=== PATIENT | female | born 1940 | race Caucasian/White ===

== ENCOUNTER 2021-02-09 15:41 | Observation (INO) | payer MEDICARE, SELFPAY ==
[2021-02-09] VITALS (10 sets, daily range): BP systolic 135–185; BP diastolic 74–114; PULSE 82–89; RESP 17–26; TEMP 36.4–37.6; O2SAT 94–99; BMI 17.0
--- NOTE | 2021-02-09 15:51 | XRR_ITS ---
PROCEDURE INFORMATION: Exam: XR Chest Exam date and time: 02/09/2021 3:35 PM Age: 80 years old Clinical indication: Dyspnea TECHNIQUE: Imaging protocol: XR of the chest. Views: 1 view. COMPARISON: CT chest con [id number] 07/16/2019 1:49 PM FINDINGS: Lungs: Severe emphysematous lung changes. Diffuse hyperinflation of lungs. Coarsened reticular interstitial lung changes. Prominent interstitial opacities in the lower lung tse bilaterally. Pleural spaces: Unremarkable. No pleural effusion. No pneumothorax. Heart/Mediastinum: Unremarkable. No cardiomegaly. Bones/joints: Bones are demineralized. Advanced arthritis changes in the shoulders. XR/XR chest 1V portable [id number] IMPRESSION: 1. Severe emphysema. 2. Lower lung interstitial opacities may correlate with areas of volume loss and bronchiectasis in the lingula and the right middle lobe on the comparison CT chest. Given that finding there is no convincing evidence of acute focal pulmonary disease, however difficult to exclude in the lower lung zones.
--- NOTE | 2021-02-09 15:54 | ECG_ITS ---
[facility] Test Date: 2021-02-09 Pat Name: Isabella He Department: Room: Gender: Female Piping Designer: : 1940 Requested By: Aki Bryant Order Number: [id number] Aimee MD: Yvon Amador M.D. Measurements Intervals [place] Rate: 85 P: 78 CO: 189 QRS: 60 QRSD: 80 T: 122 QT: 344 QTc: 411 Interpretive Statements SINUS RHYTHM LEFT ATRIAL ENLARGEMENT [-0.15mV P WAVE IN V1/V2] ANTEROSEPTAL MYOCARDIAL INFARCTION , POSSIBLY ACUTE [40+ ms Q WAVE IN V1-V4] Diffuse nonspecific ST-T changes ACUTE NM No previous ECG available for comparison Electronically Signed On 02-09-2021 20:49:28 CDT by Yvon Amador M.D. [email or web address]/[id number] f
[2021-02-09 16:21] LABS: Basophils % 0.7 %; Eosinophils # 0.1 10^3/uL (0.0-0.8); Eosinophils % 0.8 %; Hemoglobin 13.1 g/dL (11.5-15.3); Lymphocytes # 0.8 10^3/uL (0.8-4.8); Lymphocytes % 12.6 %; Mean Corpuscular HGB Conc 32.8 g/dL (30.0-36.0); Mean Corpuscular Volume 91.5 fL (81-99); Mean Platelet Volume 9.5 fL (7.4-10.4); Monocytes # 0.7 10^3/uL (0.2-0.9); Monocytes % 11.8 %; Neutrophils # 4.49 10^3/uL (1.8-7.7); Neutrophils % 73.8 %; Nucleated Red Blood Cells % 0 %; Platelet Count 271 10^3/cmm (130-400); Red Blood Count 4.37 10^6/uL (4.1-5.3); Red Cell Distribution Width 13.1 % (12.1-15.1); White Blood Count 6.1 10^3/uL (4.0-10.0)
[2021-02-09] MEDS: aspirin 81 mg Chew Tablet 324 MG PO (16:28)
[2021-02-09 16:42] LABS: SARS Covid-2 Antigen Negative (Negative)
[2021-02-09 16:52] LABS: Lactic Sepsis W/Reflex 0.8 mmol/L (0.5-2.2)
[2021-02-09 16:53] LABS: D Dimer 1.38 ug/mIFEU (0-0.59)
[2021-02-09 16:54] LABS: Troponin(5th) Baseline 54 ng/L (0-10)
[2021-02-09 17:01] LABS: Influenza A by IFA Negative (Negative); Influenza B by IFA Negative (Negative)
[2021-02-09] MEDS: albuterol 8 gm MDI 2 PUFF INHALATION (17:01)
[2021-02-09 17:02] LABS: Alanine Aminotransferase 15 U/L (0-33); Albumin Level 3.6 g/dL (3.5-5.2); Alkaline Phosphatase 72 IU/L (35-105); Aspartate Amino Transferase 14 U/L (0-32); Blood Urea Nitrogen 11 mg/dL (8-23); Calcium 8.8 mg/dL (8.5-10.5); Carbon Dioxide 28 mmol/L (22-29); Chloride 97 mmol/L (98-107); Globulin 2.9 g/dL (1.3-4.6); Glucose 110 mg/dL (65-115); NT Pro B Type Natriuretic Pept 1263 pg/mL (0-450); Osmolality Calculated 278 mOsm/kg (285-295); Sodium 134 mmol/L (136-145); Total Bilirubin 0.3 mg/dL (0.15-1.2); Total Protein 6.5 g/dL (6.6-8.7)
[2021-02-09 17:03] LABS: Anion Gap 13.5 (5-19); Potassium 4.5 mmol/L (3.5-5.1)
--- NOTE | 2021-02-09 17:04 | CTR_ITS ---
PROCEDURE INFORMATION: Exam: CTA Chest With Contrast Exam date and time: 02/09/2021 5:51 PM Age: 80 years old Clinical indication: Cough and shortness of breath; Patient HX: SOB x days, heart squirrelly x today; Additional info: Dyspnea/cp. R/O pe. Pneumonia? TECHNIQUE: Imaging protocol: Computed tomographic angiography of the chest with contrast. 3D rendering (Not supervised by radiologist): MIP and/or 3D reconstructed images were created by the technologist. Radiation optimization: All CT scans at this facility use at least one of these dose optimization techniques: automated exposure control; mA and/or kV adjustment per patient size (includes targeted exams where dose is matched to clinical indication); or iterative reconstruction. Contrast material: OMNI 350; Contrast volume: 71 ml; Contrast route: INTRAVENOUS (IV); COMPARISON: CT chest wo con [id number] 07/16/2019 1:49 PM RADIATION DOSE METRICS: Total DLP (mGy-cm): 363.12 FINDINGS: Pulmonary arteries: Small nonocclusive central pulmonary emboli are identified in the segmental pulmonary artery branch to the lingula and also the medial segmental artery branch to the right middle lobe. The main pulmonary artery diameter is unremarkable. Aorta: Unremarkable. No aortic aneurysm. No aortic dissection. Veins: No contrast reflux into the IVC or hepatic veins. Lungs: There is chronic volume loss changes in the lingula and the right middle lobe with chronic bronchiectasis. Bronchial wall thickening changes in the lower lobes are increased from prior. Patchy ground-glass opacities in the lower lobes are increased from prior. Mosaic attenuation changes throughout both lungs increased from prior. Pleural spaces: Unremarkable. No pneumothorax. No pleural effusion. Heart: RV/LV ratio is unremarkable. No significant cardiac chamber dilation changes. Negative for pericardial effusion. Lymph nodes: Unremarkable. No enlarged lymph nodes. Bones/joints: Exaggerated kyphosis of the upper thoracic spine is increased from prior imaging. No acute thoracic fractures are identified. Bones are chronically demineralized. Rightward convex scoliosis of the midthoracic spine is stable from prior. Soft tissues: Unremarkable. CT/CT angio chest PE protcl [id number] IMPRESSION: 1. Positive for small volume pulmonary embolism. Segmental level pulmonary artery thrombus is identified in the right middle lobe and the lingula. 2. There is no convincing CT angiogram evidence of acute significant right heart strain changes although clinical correlation is necessary. 3. Patchy airspace opacities and mosaic attenuation changes of the lungs with associated bronchial wall thickening features have developed since prior imaging. This may represent multifocal pneumonia or other pneumonitis changes. Bronchitis features are noted. 4. Chronic volume loss in the lingula and the right middle lobe with bronchiectasis changes. Radiation Dose CTDIVOL = (mGy): DLP = 363.12 (mGy-cm)
[2021-02-09 17:34] LABS: Add Urine Microscopic? NO; Charge for UA Resulting for Rev
--- NOTE | 2021-02-09 17:39 | PC.PHAR ---
PT STATED TO ME THAT SHE ALLERGIC TO SEVERAL MEDICATIONS, BUT SHE CANNOT REMEMBER THEM. I CALLED THE PT'S TO SEE IF HE KNEW. I SPOKE WITH THE PT'S SISTER WHO STATED THAT THE PT'S DAUGHTER IN LAW HAD THE LIST. THE DAUGHTER IN LAW IS NOT ON THE PAPERWORK SO I CANNOT TALK TO HER.
[2021-02-09 17:45] LABS: Bilirubin Urine Neg (Negative); Blood Urine Neg (Negative); Glucose Urine UA Norm (Normal); Ketones Urine Negative (Negative); Leukocyte Esterase Urine Negative (Negative); Nitrate Urine Negative (Negative); Protein Urine Neg (Negative); Urine Appearance Clear (CLEAR); Urine Color Yellow (Yellow); Urobilinogen Urine Norm (Negative); pH Urine 7 (5-7)
--- NOTE | 2021-02-09 17:54 | ECG_ITS ---
[facility] Test Date: 2021-02-09 Pat Name: Isabella He Department: Room: Gender: Female Trim Machine Adjuster: : 1940 Requested By: Aki Bryant Order Number: [id number] Aimee MD: Yvon Amador M.D. Measurements Intervals [place] Rate: 82 P: 86 VA: 185 QRS: 54 QRSD: 86 T: 119 QT: 355 QTc: 415 Interpretive Statements SINUS RHYTHM LEFT ATRIAL ENLARGEMENT [-0.15mV P WAVE IN V1/V2] ANTEROSEPTAL MYOCARDIAL INFARCTION , POSSIBLY ACUTE [40+ ms Q WAVE IN V1-V4] ACUTE DC No previous ECG available for comparison Electronically Signed On 02-09-2021 20:53:28 CDT by Yvon Amador M.D. [email or web address] [email or web address].[email or web address]/store/[id number]
[2021-02-09] MEDS: iohexol 350 mg/mL 100 mL Btl IV (18:55)
[2021-02-09 19:16] LABS: Troponin 5 2HR 63.95 ng/L (0-10); Troponin 5 2HR Delta 9.95 ABS# (0-10)
--- NOTE | 2021-02-09 19:39 | PM.HP ---
Providers/Chief Complaint Primary Care Provider: Juve Nair DO Chief Complaint: SHORTNESS OF BREATH History of Present Illness Isabella He is a 80 year old female who does not have significant past medical history other than hypertension, presented today after she was evaluated at the clinic for palpitations. Patient is stating that for last 1 to 2 weeks she has not been feeling well, she would experience palpitations without any triggering factor, she has not noticed any chest pain however has been dealing with some shortness of breath and was treated with amoxicillin for bronchitis, she attributed her symptoms to adverse reaction to amoxicillin however she did not notice any skin rash, lip swelling or wheezing. Today she went to her PCP again who recommended her to go to the ER because of sinus tachycardia and hypertension. Qnkocidw-nd-jil is also in the room who is endorsing that for last few weeks she has not been able to do much, stays in her couch and rest most of the time, probably worn out from the care that she was providing to her who who has been placed in a prison. No recent long drives or air travel. Patient is denying previous history of cancer. She has never undergone mammograms or screening colonoscopies. Recently she was diagnosed with hypertension for which she was started on lisinopril otherwise she does not take any other medications. Diagnostics in the ER revealed hypotension, sinus tachycardia, high D-dimer, CTA ruled in for PE concerning pulmonary parenchymal changes from pneumonia, she was given Levaquin and therapeutic dose of Lovenox in the ER. At the time of my evaluation she was saturating well on 2 L nasal cannula no active chest pain however did endorse pleuritic chest pain to the ER physician. EKG does show signs of right heart strain in lead V1 V2 with T wave inversion in lateral limb and chest leads. First troponin 54-second troponin 63, BNP 1200 however clinically does not look fluid overloaded. Review of Systems Const: Reports: chills, body aches, change in appetite, change in weight and fatigue; Denies: fever(s) Eyes: Denies: change in vision ENMT: Denies: throat pain Card: Reports: chest pain, palpitations and dyspnea on exertion; Denies: irregular heart rhythm Resp: Reports: dyspnea and pain on inspiration GI: Denies: abdominal pain : Denies: flank pain Musc: Denies: neck pain Skin/Breast: Denies: rash Neuro: Denies: headache(s) Psych: Denies: anxiety Endo: Denies: polyuria Kendrick/Lymph: Denies: easy bruising All/Imm: Denies: urticaria Medications/Allergies Home Medications Medication Instructions Recorded Confirmed Last Taken Type amoxicillin-pot clavulanate 1 tab PO Q8H 02/09/21 02/09/21 02/08/21 History PFSH Acute PFSH: Medical History HTN (hypertension) Surgical History History of appendectomy Hx of cholecystectomy Family History Denies family history of Diabetes CAD (coronary artery disease) Social History Smoking and tobacco status: never smoked Alcohol intake: never Substance/Drug Use: never Household members: spouse Housing: House Vitals/I&O/Wt Last Vital Signs Temp 99.6 F 02/09/21 15:42 Pulse 86 02/09/21 18:00 Resp 22 H 02/09/21 18:00 BP 172/84 02/09/21 18:00 Pulse Ox 94 02/09/21 18:00 Weight last 48 hrs Weight 46.539 kg Physical Exam Narrative: EXAM NARRATIVE: elderly female currently saturating well on 2 L nasal cannula no active chest pain shortness of breath or abdominal pain [id number]-se-val is present at the bedside S1, S2 no systolic murmur, no active signs of heart failure Abdomen soft nontender Bilateral breath diminished breath sounds with rhonchi at the bases no active wheezing or stridor Appropriate mood and affect Cognitive impairment No neurological deficits Lower extremity no edema gangrene ulcer Appropriate mood and affect Data : 02/09/21 16:08 02/09/21 16:08 Micro: Microbiology 02/09/21 16:37 Blood Culture - Preliminary Blood SPECIMEN COLLECTED A&P Assessment and plan (1) Pulmonary embolism: Status: Acute (2) Acute respiratory failure with hypoxia: Status: Acute (3) CAP (community acquired pneumonia): Status: Acute Additional A&P Information Pleuritic chest pain and hypoxia secondary to acute pulmonary embolism High troponin with BNP [address] changes in V1 V2 concerning for right heart strain, will request echo in the morning, follow-up with 6-hour troponin currently patient is chest pain-free She is hypertensive, saturating well on 2 L nasal cannula This seems to be a provoked event, as per the [id number] she has been leading a sedentary lifestyle for last 2 weeks, before that she was very active and was taking care of her No previous history of cancer she never had undergone screening mammograms or colonoscopies Patient is endorsing a fall 2 weeks ago which she is attributing to not feeling well no syncopal events For now I would continue Lovenox therapeutic dose, I do believe her fall is secondary to current PE, kindly reevaluate anticoagulation options before discharge, Home O2 evaluation I would not initiate ACS protocol for now continue therapeutic dose of Lovenox, follow-up with echo Community-acquired pneumonia Failed outpatient bronchitis treatment Continue ceftriaxone and azithromycin for now requested urine antigen, home O2 evaluation, DuoNeb every 4h as needed Pneumonia severity index low Sepsis not present on admission Essential hypertension: I would continue lisinopril 10 mg daily, if her blood pressure consistently stays above 140 will add amlodipine Full code Cardiac diet DVT prophylaxis not indicated due to therapeutic use of Lovenox Attestations Medical Necessity Statement*: Anticipating discharge in less than 48 hours will need echo to rule out right heart strain currently being treated for acute PE and community-acquired pneumonia Time Spent in Patient Care: (>than 50% of time spent in counselling and/or direct pt care on unit). 40mins Coding Level of Care Code Acute Ethylbenzene Cracking Supervisor for Angelina Delarosa Diagnoses Pulmonary embolism I26.99 Acute respiratory failure with hypoxia J96.01 CAP (community acquired pneumonia) J18.9
[2021-02-09] MEDS: levofloxacin-dextrose 5 % 750 MG/150 ML PREMIX 100 MG IV (19:59)
--- NOTE | 2021-02-09 20:03 | ED_ITS ---
HPI - SOB/Dyspnea General: Chief Complaint: Shortness of Breath/Dyspnea Stated Complaint: SHORTNESS OF BREATH Time Seen by Provider: 02/09/21 15:41 History of Present Illness: HPI Narrative: The patient is an 80-year-old female with past medical history hypertension who comes to the ER complaining of increasing shortness of breath. She was sent from her clinic where they said she was too short of breath and recommended she go to the ER. She has been being treated with amoxicillin for bronchitis for the past week but says it is not helping. Her family member reminded her also that she is allergic to amoxicillin and is not supposed to be taking it. She says it hurts her neck a little bit whenever she takes the amoxicillin but otherwise has been okay. She is complaining of a productive cough and shortness of breath as well as chest pain when she coughs. No previous history of [place]. MD elicited complaint: shortness of breath and cough Associated symptoms: Deny abdominal pain, chest pain, dizziness, extremity pain, orthopnea, palpitations or polyuria Review of Systems General: Reports: 10 or more systems reviewed and unremarkable except in HPI and below Const: Denies: fatigue Eyes: Denies: change in vision, blurry vision or eye redness ENMT: Denies: throat pain, swelling of lips/tongue, ear or mastoid pain or nasal congestion Card: Denies: chest pain, palpitations, irregular heart rhythm, edema, dyspnea on exertion or orthopnea Resp: Reports: dyspnea and productive cough GI: Denies: abdominal pain, diarrhea or GI cramping : Denies: flank pain, difficulty voiding, urinary frequency or urinary urgency Musc: Denies: neck pain, back pain, extremity pain, joint pain, joint redness, limited range of motion or muscle weakness Skin/Breast: Denies: rash, pruritus, erythema, skin pain or skin tenderness Neuro: Denies: headache(s), numbness in extremities, weakness in extremities, sensory changes, difficulty walking, dizziness, confusion or Slurred speech present Psych: Denies: anxiety or depression Endo: Denies: polyuria All/Imm: Denies: urticaria, throat swelling or tongue swelling PFSH ED PFSH: Medical History HTN (hypertension) Surgical History History of appendectomy Hx of cholecystectomy Family History Denies family history of Diabetes CAD (coronary artery disease) Social History Smoking and tobacco status: never smoked Alcohol intake: never Substance/Drug Use: never Household members: spouse Housing: House Physical Exam Const: COMMON NORMALS: no acute distress, average body habitus, patient oriented x3, no limitations, healthy appearing, alert and well nourished GEN ERAL APPEARANCE: cooperative, comfortable, well kempt and well developed ORIENTATION/CONSCIOUSNESS: Yes awake, Yes oriented to person, Yes oriented to place and Yes oriented to time HENMT: COMMON NORMALS: normocephalic, external ears normal and Normal external nose present HEAD & SCALP: normal to inspection and normocephalic NOSE: Normal external nose present EXTERNAL EAR: Yes external ears normal MOUTH: Normal oral and palatal mucosa present THROAT: posterior oropharynx normal Eye: COMMON NORMALS: Equal, round and reactive pupils present and EOMs intact bilaterally GENERAL EYE: appearance normal, both eyes and all related structures PUPIL: Yes Equal, round and reactive pupils present Neck/C-Spine: COMMON NORMALS: full ROM, no lymphadenopathy, no meningeal signs and no JVD GENERAL: Yes normal visual inspection Lymph: LYMPHATIC: no lymphadenopathy noted Chest: COMMONS NORMALS: normal inspection of the chest and normal palpation of entire chest wall Resp: COMMON NORMALS: normal respiratory effort, No retractions and No use of accessory muscles EFFORT & INSPECTION: Yes able to speak in complete sentences, Yes tachypneic and Yes Actively coughing AUSCULTATION: rhonchi and wheezes Cardio: COMMON NORMALS: no JVD, regular rate, regular rhythm, S1 normal heart sound present, S2 normal heart sound present and Peripheral pulses 2+ throughout RATE: regular rate RHYTHM: regular rhythm HEART SOUNDS: S1 normal heart sound present and S2 normal heart sound present PERIPHERAL PULSES: Peripheral pulses 2+ throughout GI: COMMON NORMALS: Normal to inspection, nondistended, normoactive bowel sounds present, Soft to palpation, non-tender and no masses INSPECTION: Yes normal to inspection PALPATION: Yes Soft to palpation : COMMON NORMALS: Yes no CVA tenderness BLADDER/KIDNEY EXAM: Yes no CVA tenderness Back/Pelvis: COMMON NORMALS: no CVA tenderness, thoracic and lumbar spine normal to inspection, no thoracic nor lumbar tenderness and thoraco-lumbar ROM normal Extremity: COMMON NORMALS: normal to inspection, full ROM, capillary refill normal, no joint enlargement and no pedal edema GENERAL: Yes normal exam except as noted Neuro: COMMON NORMALS: patient oriented x3, CN's II-XII intact bilaterally, moves all extremities, no focal motor deficits, no sensory deficits noted and gait normal SENSORIUM/ORIENTATION: Yes alert, Yes oriented to person, Yes o riented to place and Yes oriented to time MENINGEAL SIGNS: Yes no meningeal signs Psych: COMMON NORMALS: mental status grossly normal, Normal thought process present, cooperative, normal affect and speech normal APPEARANCE: Yes well kempt ATTITUDE: Yes calm SPEECH: Yes normal speech THOUGHT PROCESS: Normal thought process present Skin: COMMON NORMALS: no rashes or lesions noted GENERAL SKIN EXAM: no rashes or lesions noted Course Vital Signs: Vital signs: Vital Signs Temperature 97.6 F 02/09/21 23:08 Pulse Rate 85 02/09/21 23:08 Respiratory Rate 17 02/09/21 23:08 Blood Pressure 135/74 02/09/21 23:08 Pulse Oximetry 96 02/09/21 23:08 MDM - SOB/Dyspnea MDM Narrative: Medical decision making narrative: The patient came to the ER from clinic and has been coughing for a week and failed amoxicillin. Family member also notes that she says she has had a history of allergy to amoxicillin in the past. Her D-dimer was elevated and CT angiogram showed small pulmonary embolism. No right heart strain. She was started on Lovenox. I discussed the risks, benefits, and alternatives of going on blood thinners and she understands and accepts the risks. Also started on IV levofloxacin as she likely has a pneumonia. The patient is requiring oxygen. Discussed with Dr. Chi who accepts for admission. Lab Data: Labs: Lab Results 02/09/21 02/09/21 02/09/21 Range/Units 16:08 16:08 16:08 WBC 6.1 (4.0-10.0) 10^3/ uL RBC 4.37 (4.1-5.3) 10^6/u L Hgb 13.1 (11.5-15.3) g/dL Hct 40.0 (37.0-47.0) % MCV 91.5 (81-99) fL MCH 30.0 (28.0-34.0) pg MCHC 32.8 (30.0-36.0) g/dL RDW 13.1 (12.1-15.1) % Plt Count 271 (130-400) 10^3/c mm MPV 9.5 (7.4-10.4) fL Neut % (Auto) 73.8 % Lymph % (Auto) 12.6 % [place] % (Auto) 11.8 % Eos % (Auto) 0.8 % Baso % (Auto) 0.7 % Neut # (Auto) 4.49 (1.8-7.7) 10^3/u L Lymph # (Auto) 0.8 (0.8-4.8) 10^3/u L [place] # (Auto) 0.7 (0.2-0.9) 10^3/u L Eos # (Auto) 0.1 (0.0-0.8) 10^3/u L Baso # (Auto) 0.0 (0.0-0.1) 10^3/u L Nucleated RBC % (a uto) 0 % Nucleated RBCs # 0.0 /100WBC D-Dimer 1.38 H (0-0.59) ug/mIFE U Sodium (136-145) mmol/L Potassium (3.5-5.1) mmol/L Chloride (98-107) mmol/L Carbon Dioxide (22-29) mmol/L Anion Gap (5-19) BUN (8-23) mg/dL Creatinine (0.5-0.9) mg/dL GFR Calculation Glucose (65-115) mg/dL Calculated Osmolal ity (285-295) mOsm/k g Lactic Acid 0.8 (0.5-2.2) mmol/L Calcium (8.5-10.5) mg/dL Total Bilirubin (0.15-1.2) mg/dL AST (0-32) U/L ALT (0-33) U/L Alkaline Phosphata se (35-105) IU/L Troponin T Baselin e (0-10) ng/L Troponin T 120 Min [place] (0-10) ng/L Delta Troponin T (0-10) ABS# NT-Pro-B Natriuret Pep (0-450) pg/mL Total Protein (6.6-8.7) g/dL Albumin (3.5-5.2) g/dL Globulin (1.3-4.6) g/dL Urine Color (Yellow) Urine Appearance (CLEAR) Urine pH (5-7) Ur Specific Gravit y (1.005-1.030) Urine Protein (Negative) Urine Glucose (UA) (Normal) Urine Ketones (Negative) Urine Blood (Negative) Urine Nitrate (Negative) Urine Bilirubin (Negative) Urine Urobilinogen (Negative) mg/dL Ur Leukocyte Nidia ase (Negative) Influenza Type A A g (Negative) Influenza Type B A g (Negative) SARS-CoV-2 Ag (Rap id) (Negative) 02/09/21 02/09/21 02/09/21 Range/Units 16:08 16:08 16:12 WBC (4.0-10.0) 10^3/ uL RBC (4.1-5.3) 10^6/u L Hgb (11.5-15.3) g/dL Hct (37.0-47.0) % MCV (81-99) fL MCH (28.0-34.0) pg MCHC (30.0-36.0) g/dL RDW (12.1-15.1) % Plt Count (130-400) 10^3/c mm MPV (7.4-10.4) fL Neut % (Auto) % Lymph % (Auto) % [place] % (Auto) % Eos % (Auto) % Baso % (Auto) % Neut # (Auto) (1.8-7.7) 10^3/u L Lymph # (Auto) (0.8-4.8) 10^3/u L [place] # (Auto) (0.2-0.9) 10^3/u L Eos # (Auto) (0.0-0.8) 10^3/u L Baso # (Auto) (0.0-0.1) 10^3/u L Nucleated RBC % (a uto) % Nucleated RBCs # /100WBC D-Dimer (0-0.59) ug/mIFE U Sodium 134 L (136-145) mmol/L Potassium 4.5 (3.5-5.1) mmol/L Chloride 97 L (98-107) mmol/L Carbon Dioxide 28 (22-29) mmol/L Anion Gap 13.5 (5-19) BUN 11 (8-23) mg/dL Creatinine 0.3 L (0.5-0.9) mg/dL GFR Calculation Not Reportable Glucose 110 (65-115) mg/dL Calculated Osmolal ity 278 L (285-295) mOsm/k g Lactic Acid (0.5-2.2) mmol/L Calcium 8.8 (8.5-10.5) mg/dL Total Bilirubin 0.3 (0.15-1.2) mg/dL AST 14 (0-32) U/L ALT 15 (0-33) U/L Alkaline Phosphata se 72 (35-105) IU/L Troponin T Baselin e 54 H (0-10) ng/L Troponin T 120 Min [place] (0-10) ng/L Delta Troponin T (0-10) ABS# NT-Pro-B Natriuret Pep 1263 H (0-450) pg/mL Total Protein 6.5 L (6.6-8.7) g/dL Albumin 3.6 (3.5-5.2) g/dL Globulin 2.9 (1.3-4.6) g/dL Urine Color (Yellow) Urine Appearance (CLEAR) Urine pH (5-7) Ur Specific Gravit y (1.005-1.030) Urine Protein (Negative) Urine Glucose (UA) (Normal) Urine Ketones (Negative) Urine Blood (Negative) Urine Nitrate (Negative) Urine Bilirubin (Negative) Urine Urobilinogen (Negative) mg/dL Ur Leukocyte Nidia ase (Negative) Influenza Type A A g (Negative) Influenza Type B A g (Negative) SARS-CoV-2 Ag (Rap id) Negative (Negative) 02/09/21 02/09/21 02/09/21 Range/Units 16:30 17:27 18:08 WBC (4.0-10.0) 10^3/ uL RBC (4.1-5.3) 10^6/u L Hgb (11.5-15.3) g/dL Hct (37.0-47.0) % MCV (81-99) fL MCH (28.0-34.0) pg MCHC (30.0-36.0) g/dL RDW (12.1-15.1) % Plt Count (130-400) 10^3/c mm MPV (7.4-10.4) fL Neut % (Auto) % Lymph % (Auto) % [place] % (Auto) % Eos % (Auto) % Baso % (Auto) % Neut # (Auto) (1.8-7.7) 10^3/u L Lymph # (Auto) (0.8-4.8) 10^3/u L [place] # (Auto) (0.2-0.9) 10^3/u L Eos # (Auto) (0.0-0.8) 10^3/u L Baso # (Auto) (0.0-0.1) 10^3/u L Nucleated RBC % (a uto) % Nucleated RBCs # /100WBC D-Dimer (0-0.59) ug/mIFE U Sodium (136-145) mmol/L Potassium (3.5-5.1) mmol/L Chloride (98-107) mmol/L Carbon Dioxide (22-29) mmol/L Anion Gap (5-19) BUN (8-23) mg/dL Creatinine (0.5-0.9) mg/dL GFR Calculation Glucose (65-115) mg/dL Calculated Osmolal ity (285-295) mOsm/k g Lactic Acid (0.5-2.2) mmol/L Calcium (8.5-10.5) mg/dL Total Bilirubin (0.15-1.2) mg/dL AST (0-32) U/L ALT (0-33) U/L Alkaline Phosphata se (35-105) IU/L Troponin T Baselin e (0-10) ng/L Troponin T 120 Min [place] 63.95 H (0-10) ng/L Delta Troponin T 9.95 (0-10) ABS# NT-Pro-B Natriuret Pep (0-450) pg/mL Total Protein (6.6-8.7) g/dL Albumin (3.5-5.2) g/dL Globulin (1.3-4.6) g/dL Urine Color Yellow (Yellow) Urine Appearance Clear (CLEAR) Urine pH 7 (5-7) Ur Specific Gravit y 1.010 (1.005-1.030) Urine Protein Neg (Negative) Urine Glucose (UA) Norm (Normal) Urine Ketones Negative (Negative) Urine Blood Neg (Negative) Urine Nitrate Negative (Negative) Urine Bilirubin Neg (Negative) Urine Urobilinogen Norm (Negative) mg/dL Ur Leukocyte Nidia ase Negative (Negative) Influenza Type A A g Negative (Negative) Influenza Type B A g Negative (Negative) SARS-CoV-2 Ag (Rap id) (Negative) Discharge Plan Discharge Patient Disposition: Admitted As Inpatient Admit Provider: Katherine Chi Clinical Impression: Pulmonary embolism, CAP (community acquired pneumonia), Acute respiratory failure with hypoxia Condition: Stable Coding Level of Care Code ED Production Support Specialist for Angelina Delarosa
[2021-02-09] MEDS: enoxaparin 60 mg/0.6 mL Syringe 50 MG SUBCUT (20:25)
[2021-02-09] MEDS: lisinopril 20 mg Tablet PO (22:31)
[2021-02-09 22:51] LABS: Procalcitonin 0.04 ng/mL (0-0.5)
[2021-02-09 23:01] LABS: Anion Gap 12.1 (5-19); Blood Urea Nitrogen 9 mg/dL (8-23); Calcium 8.9 mg/dL (8.5-10.5); Carbon Dioxide 28 mmol/L (22-29); Chloride 97 mmol/L (98-107); Glucose 182 mg/dL (65-115); Osmolality Calculated 279 mOsm/kg (285-295); Potassium 4.1 mmol/L (3.5-5.1); Sodium 133 mmol/L (136-145)
[2021-02-10] VITALS (8 sets, daily range): BP systolic 120–162; BP diastolic 69–75; PULSE 74–89; RESP 17–18; TEMP 36.4–36.9; O2SAT 90–97
--- NOTE | 2021-02-10 05:00 | USCV_ITS ---
Isabella He Age: 80 Gender: F : 1940 Exam Date: 02/10/2021 06:18 Ordering Phys: Katherine Chi MD Technologist: Adry Nelson Exam Location: [facility] [place] Indication: Pulmonary embolism BP: 130 / 69 HR: 74 Rhythm: Sinus Technical Quality: Adequate MEASUREMENTS (Male / Female) Normal Values 2D ECHO LV Diastolic Diameter PLAX 3.7 cm 4.2 - 5.9 / 3.9 - 5.3 cm LV Systolic Diameter PLAX 2.7 cm IVS Diastolic Thickness 1.5 cm 0.6 - 1.0 / 0.6 - 0.9 cm IVS Systolic Thickness 1.3 cm LVPW Diastolic Thickness 1.1 cm 0.6 - 1.0 / 0.6 - 0.9 cm LVPW Systolic Thickness 1.6 cm LVOT Diameter 2.0 cm LV Ejection Fraction 2D Teich 52.3 % LV Ejection Fraction MOD 2C 57.9 % LV Ejection Fraction 2C AL 57.6 % LA Diameter 3.5 cm LA Width 4.5 cm LA Height 3.8 cm RA Width 2.5 cm RA Height 3.4 cm Aorta at Sinotubular Diameter 2.0 cm M-MODE LV Diastolic Diameter MM 4.7 cm 4.2 - 5.9 / 3.9 - 5.3 cm LV Systolic Diameter MM 3.2 cm LV Ejection Fraction MM Teich 59.7 % IVS Diastolic Thickness MM 1.0 cm 0.6 - 1.0 / 0.6 - 0.9 cm IVS Systolic Thickness MM 1.2 cm LVPW Diastolic Thickness MM 0.8 cm 0.6 - 1.0 / 0.6 - 0.9 cm LVPW Systolic Thickness MM 1.1 cm Aortic Annulus Diameter 2.1 cm LA Ao Ratio MM 1.8 MV E Point Septal Separation 0.2 cm DOPPLER AV Peak Velocity 168.0 cm/s LVOT Peak Velocity 80.0 cm/s AV Area Cont Eq vti 1.5 cm squared AV Area Cont Eq pk 1.5 cm squared MV Area PHT 4.1 cm squared Mitral E to A Ratio 2.2 MV E' Velocity 65.0 cm/s Mitral E to MV E' Ratio 16.5 Mitral E to LV E' Lateral Ratio 15.1 Mitral E to LV E' Septal Ratio 18.5 TR Peak Velocity 276.5 cm/s TR Peak Gradient 30.6 mmHg TV Peak E Velocity 79.0 cm/s Right Atrial Pressure 3.0 mmHg Pulmonary Artery Systolic Pressu 33.6 mmHg PV Peak Velocity 104.0 cm/s RV Acceleration Time 0.1 s RV Ejection Time 0.3 s RV AcT/ET 0.2 FINDINGS Left Ventricle Normal left ventricular cavity size. Mild increased left ventricular wall thickness. Normal left ventricular systolic function. Left ventricular ejection fraction is estimated at 60 %. Grade II diastolic dysfunction, moderately elevated filling pressures. Right Ventricle Normal right ventricular size and systolic function. Right ventricular systolic pressure 36 mmHg. Right Atrium Normal right atrial size. Right atrial pressure estimated at 3 mmHg. Interatrial septum deviated to right. Left Atrium Moderately increased left atrial size. Mitral Valve Mild mitral annular calcification. Moderately thickened mitral valve. No mitral valve stenosis. Moderate mitral valve regurgitation. Aortic Valve Mildly thickened trileaflet aortic valve. Aortic valve sclerosis without stenosis. Mild to moderate aortic valve regurgitation. Tricuspid Valve Structurally normal tricuspid valve. Trace to mild tricuspid valve regurgitation. Pulmonic Valve Structurally normal pulmonic valve. No pulmonary valve stenosis. Mild pulmonary valve regurgitation. Pericardium No pericardial effusion. Aorta Normal size aortic root and proximal ascending aorta. Normal- sized inferior vena cava. CONCLUSIONS 1. Normal left ventricular cavity size. Mild increased left ventricular wall thickness. Normal left ventricular systolic function. Left ventricular ejection fraction is estimated at 60 %. Grade II diastolic dysfunction, moderately elevated filling pressures. 2. Normal right ventricular size and systolic function. 3. Moderately increased left atrial size. 4. Moderate mitral valve regurgitation. 5. Mild to moderate aortic valve regurgitation. 6. Pulmonary artery pressure estimated at 36 mmHg. 7. No prior similar studies to compare. Monique Bhatt MD (Electronically Signed) Final Date: 10 Feb 2021 13:38 S
[2021-02-10] MEDS: enoxaparin 60 mg/0.6 mL Syringe 50 MG SUBCUT (06:07)
[2021-02-10 06:36] LABS: Basophils # 0.1 10^3/uL (0.0-0.1); Basophils % 1.3 %; Eosinophils # 0.1 10^3/uL (0.0-0.8); Hematocrit 37.9 % (37.0-47.0); Hemoglobin 12.4 g/dL (11.5-15.3); Lymphocytes % 24.3 %; Mean Corpuscular HGB Conc 32.7 g/dL (30.0-36.0); Mean Corpuscular Hemoglobin 29.9 pg (28.0-34.0); Mean Corpuscular Volume 91.3 fL (81-99); Mean Platelet Volume 9.7 fL (7.4-10.4); Monocytes # 0.6 10^3/uL (0.2-0.9); Monocytes % 15.8 %; Neutrophils # 2.19 10^3/uL (1.8-7.7); Neutrophils % 54.8 %; Nucleated Red Blood Cells % 0 %; Platelet Count 261 10^3/cmm (130-400); Red Blood Count 4.15 10^6/uL (4.1-5.3)
[2021-02-10] MEDS: cefTRIAXone 1,000 MG in sodium chloride 0.9% (plus) 50 ML 100 MG IV (08:53)
[2021-02-10] MEDS: lisinopril 20 mg Tablet PO (08:54)
[2021-02-10] MEDS: azithromycin 250 mg Tablet 500 MG PO (08:54)
--- NOTE | 2021-02-10 13:03 | CTR_ITS ---
PROCEDURE INFORMATION: Exam: CT Abdomen And Pelvis Without Contrast Exam date and time: 02/10/2021 2:54 PM Age: 80 years old Clinical indication: Screening exam; Other: Possible cancer; Prior surgery; Surgery type: Appy, bladder TECHNIQUE: Imaging protocol: Computed tomography of the abdomen and pelvis without contrast. Radiation optimization: All CT scans at this facility use at least one of these dose optimization techniques: automated exposure control; mA and/or kV adjustment per patient size (includes targeted exams where dose is matched to clinical indication); or iterative reconstruction. COMPARISON: CTA chest dated 02/09/2021 RADIATION DOSE METRICS: Total DLP (mGy-cm): 660.34 FINDINGS: Lungs: There is consolidation in the right middle and bilateral lower lobes of the lung. There is cardiomegaly. Liver: Normal. No mass. Gallbladder and bile ducts: Normal. No calcified stones. No ductal dilation. Pancreas: Normal. No ductal dilation. Spleen: Normal. No splenomegaly. Adrenal glands: Normal. No mass. Kidneys and ureters: Normal. No hydronephrosis. Stomach and bowel: Colonic diverticula are present although there are no CT findings to suggest diverticulitis. There is stool throughout the colon. No bowel obstruction or wall thickening. Appendix: There has been an appendectomy. Intraperitoneal space: Unremarkable. No free air. No significant fluid collection. Vasculature: Unremarkable. No abdominal aortic aneurysm. Lymph nodes: Unremarkable. No enlarged lymph nodes. Urinary bladder: There is hyperdensity in the bladder with a Hounsfield unit measurement of 66. This likely represents contrast from the patient's previous CTA chest. No calcification or gas. Reproductive: There is a 3.1 cm left ovarian cyst. Bones/joints: Unremarkable. No acute fracture. Soft tissues: Unremarkable. Other findings: This study is compromised by patient motion. CT/CT abdomen pelvis wo con [id number] IMPRESSION: There are no acute concerning abnormalities. There is bilateral lung consolidation which is unchanged when compared with 02/09/2021. Radiation Dose CTDIVOL = (mGy): DLP = 660.34 (mGy-cm)
--- NOTE | 2021-02-10 13:03 | PM.DCS ---
Discharge Providers Date of Admission: 02/09/21 19:48 Date of Discharge: February 10, 2021 Attending Provider at Admission: Katherine Chi MD Attending Provider at Discharge: Rehan Gamboa MD Primary Care Provider: Juve Nair DO Diagnoses at Discharge Discharge Diagnosis (1) Pulmonary embolism: Status: Acute (2) Acute respiratory failure with hypoxia: Status: Acute (3) CAP (community acquired pneumonia): Status: Acute (4) Palpitations: Status: Acute Reason for Visit Reason for Visit: SHORTNESS OF BREATH Hospital Course Hospital Course Isabella He is a 80 year old female who does not have significant past medical history other than hypertension, presented today after she was evaluated at the clinic for palpitations. Patient is stating that for last 1 to 2 weeks she has not been feeling well, she would experience palpitations without any triggering factor, she has not noticed any chest pain however has been dealing with some shortness of breath and was treated with amoxicillin for bronchitis, she attributed her symptoms to adverse reaction to amoxicillin however she did not notice any skin rash, lip swelling or wheezing. Today she went to her PCP again who recommended her to go to the ER because of sinus tachycardia and hypertension. [id number] is also in the room who is endorsing that for last few weeks she has not been able to do much, stays in her couch and rest most of the time, probably worn out from the care that she was providing to her who who has been placed in a mcc. No recent long drives or air travel. Patient is denying previous history of cancer. She has never undergone mammograms or screening colonoscopies. Recently she was diagnosed with hypertension for which she was started on lisinopril otherwise she does not take any other medications. Diagnostics in the ER revealed hypotension, sinus tachycardia, high D-dimer, CTA ruled in for PE concerning pulmonary parenchymal changes from pneumonia, she was given Levaquin and therapeutic dose of Lovenox in the ER. At the time of my evaluation she was saturating well on 2 L nasal cannula no active chest pain however did endorse pleuritic chest pain to the ER physician. EKG does show signs of right heart strain in lead V1 V2 with T wave inversion in lateral limb and chest leads. Patient admitted to the hospital under observation for new diagnosis of PE. She was started on full dose anticoagulation. Echocardiogram was done. Patient remained hemodynamically stable and on the day of discharge was on room air saturating 90%. Home O2 evaluation has been done prior to discharge. At baseline patient has not been getting much out of bed for last few weeks and she has been feeling weak though she has not had any fever, nausea, vomiting, diarrhea, dysuria. As per my conversation with the patient and patient's [id number] Ms. Yo patient has been having frequent falls at home as well. Patient does not carry a formal diagnosis of dementia but there is a concern that she is becoming more forgetful and difficult to take care of herself as per the family members because of which they are trying to get approved with the family. Because of concerns of frequent falls and possibility of hemorrhagic stroke because of a fall there is a discussion regarding need of anticoagulation or not. We discussed the potential benefits versus risk factor. Given the fact that patient does not have a hemodynamically significant pulmonary embolism and is on room air with recurrent falls patient is at a higher risk of hemorrhagic stroke because of which decision was made not to do any anticoagulation for now. Because of age and family history of ovarian cancer with a new diagnosis of incidental PE CT abdomen pelvis was done as well for cancer screening. Patient also states that she has been having occasional episodes of palpitations on and off for last 1 month for which event monitor has been provided to the patient for next 21 days. Patient is to follow-up with Dr. Bhatt in 6 weeks for discussing the results of event monitor. Both patient and patient's [id number] are in agreements to the treatment plan. Patient has been discharged hemodynamically stable condition advised to follow-up with a primary care provider within next 4 to 7 days. Physical Exam Narrative: EXAM NARRATIVE: elderly female S1, S2 no systolic murmur, no active signs of heart failure Abdomen soft nontender Bilateral breath diminished breath sounds with rhonchi at the bases no active wheezing or stridor Appropriate mood and affect Cognitive impairment No neurological deficits Lower extremity no edema gangrene ulcer Appropriate mood and affect Discharge Data Data Completed and Pending: Completed Studies During Hospitalization Category Date Time Status CT angio chest PE protcl [id number] Stat Cat Scan 02/09/21 17:04 Completed XR chest 1V vincenzo ble [id number] Urgent Exams 02/09/21 15:51 Completed Pending at discharge Category Date Time Status CT chest abd pel w con* Routine Cat Scan 02/10/21 12:13 Ordered Blood Culture Sta t Lab 02/09/21 16:37 Results CV echo complete* [id number] Routine Ultrasound 02/10/21 05:00 [place] [id number] Routin e Ultrasound 02/10/21 05:00 Ordered Labs from last 24 hours 02/10/21 02/09/21 02/09/21 05:33 20:20 20:20 WBC 4.0 RBC 4.15 Hgb 12.4 Hct 37.9 MCV 91.3 MCH 29.9 MCHC 32.7 RDW 13.0 Plt Count 261 MPV 9.7 Neut % (Auto) 54.8 Lymph % (Auto) 24.3 Franklin % (Auto) 15.8 Eos % (Auto) 3.0 Baso % (Auto) 1.3 Neut # (Auto) 2.19 Lymph # (Auto) 1.0 Franklin # (Auto) 0.6 Eos # (Auto) 0.1 Baso # (Auto) 0.1 Nucleated RBC % (a uto) 0 Nucleated RBCs # 0.0 D-Dimer Sodium 133 L Potassium 4.1 Chloride 97 L Carbon Dioxide 28 Anion Gap 12.1 BUN 9 Creatinine 0.4 L GFR Calculation Not Reportable Glucose 182 H Calculated Osmolal ity 279 L Lactic Acid Calcium 8.9 Total Bilirubin AST ALT Alkaline Phosphata se Troponin T Baselin e Troponin T 120 Min hoopa Delta Troponin T Troponin T Hi Sens 6Hr 51.40 H Troponin T Hi Sens 6Hr Delta -2.60 L NT-Pro-B Natriuret Pep Total Protein Albumin Globulin Procalcitonin 0.04 Urine Color Urine Appearance Urine pH Ur Specific Gravit y Urine Protein Urine Glucose (UA) Urine Ketones Urine Blood Urine Nitrate Urine Bilirubin Urine Urobilinogen Ur Leukocyte Nidia ase Influenza Type A A g Influenza Type B A g SARS-CoV-2 Ag (Rap id) 02/09/21 02/09/21 02/09/21 18:08 17:27 16:30 WBC RBC Hgb Hct MCV MCH MCHC RDW Plt Count MPV Neut % (Auto) Lymph % (Auto) Franklin % (Auto) Eos % (Auto) Baso % (Auto) Neut # (Auto) Lymph # (Auto) Franklin # (Auto) Eos # (Auto) Baso # (Auto) Nucleated RBC % (a uto) Nucleated RBCs # D-Dimer Sodium Potassium Chloride Carbon Dioxide Anion Gap BUN Creatinine GFR Calculation Glucose Calculated Osmolal ity Lactic Acid Calcium Total Bilirubin AST ALT Alkaline Phosphata se Troponin T Baselin e Troponin T 120 Min hoopa 63.95 H Delta Troponin T 9.95 Troponin T Hi Sens 6Hr Troponin T Hi Sens 6Hr Delta NT-Pro-B Natriuret Pep Total Protein Albumin Globulin Procalcitonin Urine Color Yellow Urine Appearance Clear Urine pH 7 Ur Specific Gravit y 1.010 Urine Protein Neg Urine Glucose (UA) Norm Urine Ketones Negative Urine Blood Neg Urine Nitrate Negative Urine Bilirubin Neg Urine Urobilinogen Norm Ur Leukocyte Nidia ase Negative Influenza Type A A g Negative Influenza Type B A g Negative SARS-CoV-2 Ag (Rap id) 02/09/21 02/09/21 02/09/21 16:12 16:08 16:08 WBC RBC Hgb Hct MCV MCH MCHC RDW Plt Count MPV Neut % (Auto) Lymph % (Auto) Franklin % (Auto) Eos % (Auto) Baso % (Auto) Neut # (Auto) Lymph # (Auto) Franklin # (Auto) Eos # (Auto) Baso # (Auto) Nucleated RBC % (a uto) Nucleated RBCs # D-Dimer Sodium 134 L Potassium 4.5 Chloride 97 L Carbon Dioxide 28 Anion Gap 13.5 BUN 11 Creatinine 0.3 L GFR Calculation Not Reportable Glucose 110 Calculated Osmolal ity 278 L Lactic Acid Calcium 8.8 Total Bilirubin 0.3 AST 14 ALT 15 Alkaline Phosphata se 72 Troponin T Baselin e 54 H Troponin T 120 Min hoopa Delta Troponin T Troponin T Hi Sens 6Hr Troponin T Hi Sens 6Hr Delta NT-Pro-B Natriuret Pep 1263 H Total Protein 6.5 L Albumin 3.6 Globulin 2.9 Procalcitonin Urine Color Urine Appearance Urine pH Ur Specific Gravit y Urine Protein Urine Glucose (UA) Urine Ketones Urine Blood Urine Nitrate Urine Bilirubin Urine Urobilinogen Ur Leukocyte Nidia ase Influenza Type A A g Influenza Type B A g SARS-CoV-2 Ag (Rap id) Negative 02/09/21 02/09/21 02/09/21 16:08 16:08 16:08 WBC 6.1 RBC 4.37 Hgb 13.1 Hct 40.0 MCV 91.5 MCH 30.0 MCHC 32.8 RDW 13.1 Plt Count 271 MPV 9.5 Neut % (Auto) 73.8 Lymph % (Auto) 12.6 Franklin % (Auto) 11.8 Eos % (Auto) 0.8 Baso % (Auto) 0.7 Neut # (Auto) 4.49 Lymph # (Auto) 0.8 Franklin # (Auto) 0.7 Eos # (Auto) 0.1 Baso # (Auto) 0.0 Nucleated RBC % (a uto) 0 Nucleated RBCs # 0.0 D-Dimer 1.38 H Sodium Potassium Chloride Carbon Dioxide Anion Gap BUN Creatinine GFR Calculation Glucose Calculated Osmolal ity Lactic Acid 0.8 Calcium Total Bilirubin AST ALT Alkaline Phosphata se Troponin T Baselin e Troponin T 120 Min hoopa Delta Troponin T Troponin T Hi Sens 6Hr Troponin T Hi Sens 6Hr Delta NT-Pro-B Natriuret Pep Total Protein Albumin Globulin Procalcitonin Urine Color Urine Appearance Urine pH Ur Specific Gravit y Urine Protein Urine Glucose (UA) Urine Ketones Urine Blood Urine Nitrate Urine Bilirubin Urine Urobilinogen Ur Leukocyte Nidia ase Influenza Type A A g Influenza Type B A g SARS-CoV-2 Ag (Rap id) Addt'l Data from Hospital Stay: Laboratory Results WBC 4.0 10^3/uL (4.0- 10.0) 02/10/21 05:33 RBC 4.15 10^6/uL (4.1 -5.3) 02/10/21 05:33 Hgb 12.4 g/dL (11.5-1 5.3) 02/10/21 05:33 Hct 37.9 % (37.0-47.0 ) 02/10/21 05:33 MCV 91.3 fL (81-99) 02/10/21 05:33 MCH 29.9 pg (28.0-34. 0) 02/10/21 05:33 MCHC 32.7 g/dL (30.0-3 6.0) 02/10/21 05:33 RDW 13.0 % (12.1-15.1 ) 02/10/21 05:33 Plt Count 261 10^3/cmm (130 -400) 02/10/21 05:33 MPV 9.7 fL (7.4-10.4) 02/10/21 05:33 Neut % (Auto) 54.8 % 02/10/21 05:33 Lymph % (Auto) 24.3 % 02/10/21 05:33 Franklin % (Auto) 15.8 % 02/10/21 05:33 Eos % (Auto) 3.0 % 02/10/21 05:33 Baso % (Auto) 1.3 % 02/10/21 05:33 Neut # (Auto) 2.19 10^3/uL (1.8 -7.7) 02/10/21 05:33 Lymph # (Auto) 1.0 10^3/uL (0.8- 4.8) 02/10/21 05:33 Franklin # (Auto) 0.6 10^3/uL (0.2- 0.9) 02/10/21 05:33 Eos # (Auto) 0.1 10^3/uL (0.0- 0.8) 02/10/21 05:33 Baso # (Auto) 0.1 10^3/uL (0.0- 0.1) 02/10/21 05:33 Nucleated RBC % (a uto) 0 % 02/10/21 05:33 Nucleated RBCs # 0.0 /100WBC 02/10/21 05:33 D-Dimer 1.38 ug/mIFEU (0- 0.59) H 02/09/21 16:08 Sodium 133 mmol/L (136-1 45) L 02/09/21 20:20 Potassium 4.1 mmol/L (3.5-5 .1) 02/09/21 20:20 Chloride 97 mmol/L (98-107 ) L 02/09/21 20:20 Carbon Dioxide 28 mmol/L (22-29) 02/09/21 20:20 Anion Gap 12.1 (5-19) 02/09/21 20:20 BUN 9 mg/dL (8-23) 02/09/21 20:20 Creatinine 0.4 mg/dL (0.5-0. 9) L 02/09/21 20:20 GFR Calculation Not Reportable 02/09/21 20:20 Glucose 182 mg/dL (65-115 ) H 02/09/21 20:20 Calculated Osmolal ity 279 mOsm/kg (285- 295) L 02/09/21 20:20 Lactic Acid 0.8 mmol/L (0.5-2 .2) 02/09/21 16:08 Calcium 8.9 mg/dL (8.5-10 .5) 02/09/21 20:20 Total Bilirubin 0.3 mg/dL (0.15-1 .2) 02/09/21 16:08 AST 14 U/L (0-32) 02/09/21 16:08 ALT 15 U/L (0-33) 02/09/21 16:08 Alkaline Phosphata se 72 IU/L (35-105) 02/09/21 16:08 Troponin T Baselin e 54 ng/L (0-10) H 02/09/21 16:08 Troponin T 120 Min hoopa 63.95 ng/L (0-10) H 02/09/21 18:08 Delta Troponin T 9.95 ABS# (0-10) 02/09/21 18:08 Troponin T Hi Sens 6Hr 51.40 ng/L (0-10) H 02/09/21 20:20 Troponin T Hi Sens 6Hr Delta -2.60 ng/L (0-12) L 02/09/21 20:20 NT-Pro-B Natriuret Pep 1263 pg/mL (0-450 ) H 02/09/21 16:08 Total Protein 6.5 g/dL (6.6-8.7 ) L 02/09/21 16:08 Albumin 3.6 g/dL (3.5-5.2 ) 02/09/21 16:08 Globulin 2.9 g/dL (1.3-4.6 ) 02/09/21 16:08 Procalcitonin 0.04 ng/mL (0-0.5 ) 02/09/21 20:20 Urine Color Yellow (Yellow) 02/09/21 17:27 Urine Appearance Clear (CLEAR) 02/09/21 17:27 Urine pH 7 (5-7) 02/09/21 17:27 Ur Specific Gravit y 1.010 (1.005-1.0 30) 02/09/21 17:27 Urine Protein Neg (Negative) 02/09/21 17:27 Urine Glucose (UA) Norm (Normal) 02/09/21 17:27 Urine Ketones Negative (Negati ve) 02/09/21 17:27 Urine Blood Neg (Negative) 02/09/21 17:27 Urine Nitrate Negative (Negati ve) 02/09/21 17:27 Urine Bilirubin Neg (Negative) 02/09/21 17:27 Urine Urobilinogen Norm mg/dL (Negat desi) 02/09/21 17:27 Ur Leukocyte Nidia ase Negative (Negati ve) 02/09/21 17:27 Influenza Type A A g Negative (Negati ve) 02/09/21 16:30 Influenza Type B A g Negative (Negati ve) 02/09/21 16:30 SARS-CoV-2 Ag (Rap id) Negative (Negati ve) 02/09/21 16:12 Impressions Chest X-Ray 02/09/21 15:51 IMPRESSION: 1. Severe emphysema. 2. Lower lung interstitial opacities may correlate with areas of volume loss and bronchiectasis in the lingula and the right middle lobe on the comparison CT chest. Given that finding there is no convincing evidence of acute focal pulmonary disease, however difficult to exclude in the lower lung zones. Chest CTA 02/09/21 17:04 IMPRESSION: 1. Positive for small volume pulmonary embolism. Segmental level pulmonary artery thrombus is identified in the right middle lobe and the lingula. 2. There is no convincing CT angiogram evidence of acute significant right heart strain changes although clinical correlation is necessary. 3. Patchy airspace opacities and mosaic attenuation changes of the lungs with associated bronchial wall thickening features have developed since prior imaging. This may represent multifocal pneumonia or other pneumonitis changes. Bronchitis features are noted. 4. Chronic volume loss in the lingula and the right middle lobe with bronchiectasis changes. Radiation Dose CTDIVOL = (mGy): DLP = 363.12 (mGy-cm) ADDENDUM: 02/09/211938 THIS REPORT CONTAINS FINDINGS THAT MAY BE CRITICAL TO PATIENT CARE. The findings were verbally communicated via telephone conference with JAZMIN SHARMA at 7:37 PM CDT on 02/09/2021. The findings were acknowledged and understood. Radiation Dose CTDIVOL = (mGy): DLP = 363.12 (mGy-cm) Vitals: Last Vital Signs Temp 97.6 F 02/10/21 11:19 Pulse 74 02/10/21 11:19 Resp 17 02/10/21 11:19 BP 120/71 02/10/21 11:19 Pulse Ox 90 02/10/21 11:19 Discharge Plan Discharge Patient Disposition: Home Condition: Stable Prescriptions: New Advair Diskus 100-50 mcg/dose blister with device 1 inh inhalation DAILY Qty: 60 RF: 0 lisinopril 20 mg Tablet 20 mg PO DAILY Qty: 30 RF: 0 Discontinued amoxicillin-pot clavulanate 875-125 mg tablet 1 tab PO Q8H RF: 0 Discharge Orders: Discharge Order (Routine); Ordered 02/10/21 Ordered By: Rehan Gamboa Other Ambulatory Orders: CA cardiac event monitor (Routine) Timeframe: 1 Week Facility: [facility] - Location: Cardiac Diagnostic Laboratory Ordered By: Rehan Gamboa Referrals: Monique Bhatt MD [Physician] - 6 Weeks (Dr. Bhatt's office will call you Saturday and schedule an appointment for you to see her. ) Discharge Diet: Regular Discharge Activity: Resume usual activity Patient Instructions: Lisinopril (By mouth), Fluticasone/Salmeterol (By breathing), Pulmonary Embolism (DC), Acute Respiratory Distress Syndrome (DC), Community-acquired Pneumonia (DC), Opioid Safety Discharge Attestations Time Spent in Discharge Care*: greater than 30 min Specific Discharge Activities: educating patient, educating and/or supporting family/caregiver, discussing with pcp/other providers, discussing with caseworker intake/social workers/dc planners and evaluating patient/reviewing data Status at Discharge: Cognitive status at discharge: cognitively intact, Behavioral status at discharge: cooperative, Functional status at discharge: independent ambulation Overall status at discharge: patient is back to baseline Quality Metrics Clinical Quality Measures During this hospital stay, did patient experience: None Coding Level of Care Code Acute Chg FW DC note Diagnoses Pulmonary embolism I26.99 Acute respiratory failure with hypoxia J96.01 CAP (community acquired pneumonia) J18.9 Palpitations R00.2
--- NOTE | 2021-02-10 16:15 | PC.NURSE ---
Patient discharge education discussed with patient and son at bedside. IV removed and medications discussed. Patient wheeled out to private vehicle.
== END 2021-02-10 16:26 | disposition home or self-care (01) ==
LOC: ER 19:47 → MEDSURG 20:09
PROVIDERS: Admitting Provider Internal Medicine; Emergency Provider Family Medicine; PCP Orthopaedic Surgery; Visit Provider Student in an Organized Health Care Education/Training Program
DX: I26.99 Other pulmonary embolism without acute cor pulmonale (principal); J96.01 Acute respiratory failure with hypoxia; J18.9 Pneumonia, unspecified organism; R00.2 Palpitations; I10 Essential (primary) hypertension
CPT/HCPCS: 36415; 71045; 71275; 74176; 80048; 80053; 81003; 83605; 83880; 84145; 84484; 85025; 85378; 86403; 87040; 87426; 87449; 87804; 93005; 93306; 94640; 96365; 96366; 96367; 96372; 97161; 97530; 99285; G0378; J0696; J1650; J1956; J3535; Q0144; Q9967